=== PATIENT | male | born 1950 | race Caucasian/White ===

== ENCOUNTER 2019-08-23 15:20 | Emergency (ER) | payer OTHER ==
[~2019-08-23] VITALS: Ht 182.9 cm; Wt 108.9 kg
[2019-08-23] MEDS ORDERED: NAPROSYN500 MG PO (17:09)
[2019-08-23] MEDS ORDERED: NORFLEX100 MG PO (17:09)
[2019-08-23 18:02] VITALS: BP 170/68
== END 2019-08-23 18:03 | disposition home or self-care (01) ==
LOC: ER 15:20
DX: S16.1XXA Strain of muscle, fascia and tendon at neck level, initial encounter (principal); V89.2XXA Person injured in unspecified motor-vehicle accident, traffic, initial encounter; Y93.89 Activity, other specified; Y92.410 Unspecified street and highway as the place of occurrence of the external cause; Y99.8 Other external cause status